=== PATIENT | female | born 1965 | race Caucasian/White ===

== ENCOUNTER 2016-11-26 18:59 | Emergency (ER) | payer SELFPAY ==
--- NOTE | 2016-11-26 19:56 | Emergency Department Record ---
History of Present Illness - General Chief Complaint: Ankle/Foot Injury Stated Complaint: PAIN IN LEFT FOOT Time Seen by Provider: 11/26/16 19:23 Source: Patient Mode of Arrival: Ambulatory Limitations: No limitations - History of Present Illness Initial Comments: pt states she injured her foot 2 months ago in a vibrating chair and it has continued to hurt. she has delayed getting it looked at because she worley no insurance. she works as a deleon and stands all day. MD Complaint: Foot injury Onset/Timin -: Days(s) Injury: Foot: Left Type of Injury: Other Place: Other Severity: Moderate Severity scale (1-10): 8 Improves With: Cold therapy, Rest Worsens With: Movement, Palpation, Weight bearing Context: Other Associated Symptoms: Ambulatory Treatments Prior to Arrival: Bandage - Related Data Home Medications Medication Instructions Recorded Confirmed Last Taken Estradiol 0.5 mg PO DAILY tab 06/20/16 11/26/16 Unknown Gabapentin [Neurontin] 100 mg PO DAILY cap 06/20/16 11/26/16 Unknown Citalopram Hydrobromide [Celexa] 20 mg PO DAILY 11/26/16 11/26/16 Unknown Previous Rx's Medication Instructions Recorded Hydrocodone/Acetaminophen [Cumming 1 each PO Q6HR #7 tablet 11/26/16 5-325 Tablet] Ibuprofen [Motrin 600Mg] 600 mg PO Q6H #20 tablet 11/26/16 Allergies Allergy/AdvReac Type Severity Reaction Status Date / Time No Known Drug Allergies Allergy Verified 11/26/16 19:05 Travel Screening - Travel/Exposure Within Last 30 Days Have you traveled within the last 30 days?: No - Travel/Exposure Within Last Year Have you traveled outside the [place] in the last year?: No - Additonal Travel Details Have you been exposed to anyone with a communicable illness?: No - Travel Symptoms Symptom Screening: None Review of Systems Reviewed: No additional complaints except as noted below Constitutional: Reports: As per HPI. Denies: Chills, Fever, Malaise, Night sweats, Weakness, Weight change Eyes: Reports: As per HPI. Denies: Eye discharge, Eye pain, Photophobia, Vision change ENT: Reports: As per HPI. Denies: Congestion, Dental pain, Ear pain, Epistaxis , Hearing loss, Throat pain Respiratory: Reports: As per HPI. Denies: Cough, Dyspnea, Hemoptysis, Stridor, Wheezes Cardiovascular: Reports: As per HPI. Denies: Arrhythmia, Chest pain, Dyspnea on exertion, Edema, Murmurs, Orthopnea, Palpitations, Paroxysmal nocturnal dyspnea, Rheumatic Fever, Syncope Endocrine: Reports: As per HPI. Denies: Fatigue, Heat or cold intolerance, Polydipsia, Polyuria Gastrointestinal: Reports: As per HPI. Denies: Abdominal pain, Constipation, Diarrhea, Hematemesis, Hematochezia, Melena, Nausea, Vomiting Genitourinary: Reports: As per HPI. Denies: Abnormal menses, Discharge, Dyspareunia, Dysuria, Frequency, Hematuria, Incontinence, Retention, Urgency Musculoskeletal: Reports: As per HPI. Denies: Arthralgia, Back pain, Gout, Joint swelling, Myalgia, Neck pain Skin: Reports: As per HPI. Denies: Bruising, Change in color, Change in hair/ nails, Lesions, Pruritus, Rash Neurological: Reports: As per HPI. Denies: Abnormal gait, Confusion, Headache, Numbness, Paresthesias, Seizure, Tingling, Tremors, Vertigo, Weakness Psychiatric: Reports: As per HPI. Denies: Anxiety, Auditory hallucinations, Depression, Homicidal thoughts, Suicidal thoughts, Visual hallucinations Hematological/Lymphatic: Reports: As per HPI. Denies: Anemia, Blood Clots, Easy bleeding, Easy bruising, Swollen glands Past Medical History - SOCIAL HISTORY Smoking Status: Current every day smoker Alcohol Use: Rare Drug Use: Rare Drug Use Detail:: Marijuana - RESPIRATORY Hx Respiratory Disorders: Yes Hx Sleep Apnea: Yes Hx of CPAP: Yes - CARDIOVASCULAR Hx Cardio Disorders: No - NEURO Hx Neuro Disorders: Yes Hx Neuropathy: Yes Comment:: fibromylgia - GI Hx GI Disorders: No - Hx Genitourinary Disorders: No - ENDOCRINE Hx Endocrine Disorders: Yes Hx Thyroid Disease: No Comment:: was on synthroid but does not take any more - MUSCULOSKELETAL Hx Musculoskeletal Disorders: No - PSYCH Hx Psych Problems: No - HEMATOLOGY/ONCOLOGY Hx Hematology/Oncology Disorders: No Family Medical History Any Significant Family History?: No Physical Exam - General General Appearance: Alert, Oriented x3, Cooperative, Mild distress - Head Head exam: Normal inspection - Eye Eye exam: Normal appearance, PERRL, EOMI Pupils: Normal accommodation - ENT ENT exam: Normal exam, Mucous membranes moist, Normal external ear exam, Normal orophraynx Ear exam: Normal external inspection. negative: External canal tenderness Nasal Exam: Normal inspection. negative: Discharge, Sinus tenderness Mouth exam: Normal external inspection, Tongue normal Teeth exam: Normal inspection. negative: Dental caries Throat exam: Normal inspection. negative: Tonsillar erythema, Tonsillar exudate - Neck Neck exam: Normal inspection, Full ROM. negative: Tenderness - Respiratory Respiratory exam: Normal lung sounds bilaterally. negative: Respiratory distress - Cardiovascular Cardiovascular Exam: Regular rate, Normal rhythm, Normal heart sounds - GI/Abdominal GI/Abdominal exam: Soft, Normal bowel sounds. negative: Tenderness - Rectal Rectal exam: Deferred - exam: Deferred - Extremities Extremities exam: Full ROM, Normal capillary refill, Tenderness Image of Feet: 1 - tender 2 - tender - Back Back exam: Reports: Normal inspection, Full ROM. Denies: Muscle spasm, Rash noted, Tenderness - Neurological Neurological exam: Alert, CN II-XII intact, Normal gait, Oriented X3 - Psychiatric Psychiatric exam: Normal affect, Normal mood - Skin Skin exam: Dry, Intact, Normal color, Warm Course Vital Signs 11/26/16 19:06 Temperature 98.1 F Pulse Rate [ 92 H Pulse Ox Probe] Respiratory 16 Rate Blood Pressure 138/104 [Left Arm] Pulse Ox 97 Disposition Disposition: Discharge Clinical Impression: Sprain of left foot Qualifiers: Encounter type: initial encounter Qualified Code(s): S93.602A - Unspecified sprain of left foot, initial encounter Disposition: Home, Self-Care Condition: (1) Good Instructions: Foot Sprain (ED) Additional Instructions: follow up with family doctor. return sooner if worse. ice and elevate. Prescriptions: Hydrocodone/Acetaminophen [Cumming 5-325 Tablet] 1 each PO Q6HR #7 tablet Ibuprofen [Motrin 600Mg] 600 mg PO Q6H #20 tablet Forms: Patient Portal Access Quality - Quality Measures Quality Measures: N/A - Blood Pressure Screening Blood Pressure Classification: Hypertensive Reading Systolic Measurement: 138 Diastolic Measurement: 104 Screening for High Blood Pressure: < First Hypertensive BP, F/U Documented > [ G8950] First Hypertensive Follow-up Interventions: Follow-up with rescreen GT 1 day and LT 4 weeks.
--- NOTE | 2016-11-28 07:44 | RADIOLOGY REPORT ---
EXAM: LEFT FOOT HISTORY: LEFT FOOT PAIN, INJURED ONE MONTH AGO. TECHNIQUE: Three views of the left foot were obtained. Comparison: None. Encounter: Initial. FINDINGS: There are plantar and dorsal calcaneal spurs. There is no fracture or acute osseous abnormality. There are mild arthritic changes in the first metatarsal phalangeal joint. IMPRESSION: 1. NO FRACTURE OR ACUTE OSSEOUS ABNORMALITY. 2. CALCANEAL SPURS. 3. MILD ARTHRITIC CHANGES FIRST METATARSAL PHALANGEAL JOINT. JOB NUMBER: [id number] [facility]
== END 2016-11-26 20:22 | disposition home or self-care (01) ==
LOC: ER 18:59
DX: S93.602A Unspecified sprain of left foot, initial encounter (principal); W31.89XA Contact with other specified machinery, initial encounter
CPT/HCPCS: 99283

== ENCOUNTER 2017-10-07 14:04 | Observation (INO) | payer SELFPAY ==
--- NOTE | 2017-10-07 14:34 | Emergency Department Record ---
History of Present Illness - General Chief Complaint: Chest Pain Stated Complaint: CHEST PAIN Time Seen by Provider: 10/07/17 14:27 Source: Patient Mode of Arrival: Ambulatory Limitations: No limitations - History of Present Illness Initial Comments: The patient is her due to chest discomfort for the last day. It is a vague L sided pain mainly under the L breast. She does have mild pain at times in her L upper back but denies any SOB, STEFANO, or nausea. The patient has felt a little sweaty today but it has been quite warm today. The pain is not worse with exertion and she has no hx of cardiac dz. The patient does have cardiac risk factors of tobacco use and family hx. MD Complaint: Chest pain Onset/Timin -: Days(s) Pain Location: Substernal, Left chest Severity scale (1-10): 4 Quality: Aching, Dull, Tightness Consistency: Constant Improves With: Nothing Worsens With: Nothing Treatments Prior to Arrival: None - Related Data Allergies Allergy/AdvReac Type Severity Reaction Status Date / Time No Known Drug Allergies Allergy Verified 10/07/17 14:17 Travel Screening - Travel/Exposure Within Last 30 Days Have you traveled within the last 30 days?: No - Travel/Exposure Within Last Year Have you traveled outside the [place] in the last year?: No - Additonal Travel Details Have you been exposed to anyone with a communicable illness?: No - Travel Symptoms Symptom Screening: None Review of Systems Constitutional: Denies: Chills, Fever Eyes: Denies: Eye discharge ENT: Denies: Congestion Respiratory: Denies: Cough, Dyspnea Past Medical History - SOCIAL HISTORY Smoking Status: Light tobacco smoker (<10/day) Alcohol Use: Rare Drug Use: Occasional Drug Use Detail:: Marijuana - RESPIRATORY Hx Respiratory Disorders: Yes Hx Sleep Apnea: Yes Hx of CPAP: Yes - CARDIOVASCULAR Hx Cardio Disorders: No - NEURO Hx Neuro Disorders: Yes Hx Neuropathy: Yes Comment:: fibromylgia - GI Hx GI Disorders: No - Hx Genitourinary Disorders: No - ENDOCRINE Hx Endocrine Disorders: Yes Hx Diabetes: No Hx Thyroid Disease: No Comment:: was on synthroid but does not take any more - MUSCULOSKELETAL Hx Musculoskeletal Disorders: No - PSYCH Hx Psych Problems: No - HEMATOLOGY/ONCOLOGY Hx Hematology/Oncology Disorders: No Family Medical History Any Significant Family History?: No Hx Diabetes: Father Hx Heart Disease: Father Hx Resp Disorders: Father Physical Exam - General General Appearance: Alert, Oriented x3, Cooperative, No acute distress - Head Head exam: Atraumatic, Normocephalic, Normal inspection - Eye Eye exam: Normal appearance, PERRL - Neck Neck exam: Normal inspection, Full ROM. negative: Tenderness - Respiratory Respiratory exam: Normal lung sounds bilaterally. negative: Respiratory distress - Cardiovascular Cardiovascular Exam: Regular rate, Normal rhythm, Normal heart sounds - GI/Abdominal GI/Abdominal exam: Soft, Normal bowel sounds. negative: Tenderness - Extremities Extremities exam: Normal inspection, Full ROM, Normal capillary refill. negative: Tenderness - Neurological Neurological exam: Alert, Normal gait. negative: Abnormal gait, Motor sensory deficit - Skin Skin exam: negative: Rash Course Vital Signs 10/07/17 14:08 Temperature 98.3 F Pulse Rate 76 Respiratory 18 Rate Blood Pressure 124/79 Pulse Ox 97 - Reevaluation(s) Reevaluation #1: The patient is doing well and is resting comfortably. I did discuss the neg workup with the patient. Due to the fact there is no clear dx and she has significant cardiac risk factors I did recommend hospital admission and she did agree. I then did discuss the case with Laurel ([employer]) and she does accept the patient for admission. 10/07/17 15:42 Medical Decision Making - Data Complexity MDM Data: Labs Ordered and/or Reviewed, X-Ray Ordered and/or Reviewed, EKG Ordered and/or Reviewed - Lab Data Result diagrams: 10/07/17 14:42 10/07/17 14:42 - EKG Data -: EKG Interpreted by Me EKG: No Acute Changes, Normal EKG - Radiology Data Radiology results: Report reviewed (CXR: Neg.) Disposition Disposition: Admit Clinical Impression: Chest pain at rest Disposition: Still a Patient at [facility] Decision to Admit: Admit from ER Decision to Admit Date: 10/07/17 Decision to Admit Time: 15:44 Accepting Physician: Eliel Time Discussed w/Accepting Physician: 15:44 Condition: (2) Stable Time of Disposition: 15:44 Quality - Quality Measures Quality Measures: N/A - Blood Pressure Screening View Details: Yes Does Patient Have Any of the Following: No Blood Pressure Classification: Pre-Hypertensive BP Reading Systolic Measurement: 124 Diastolic Measurement: 79 Screening for High Blood Pressure: < Pre-Hypertensive BP, F/U Documented > [ G8950] Pre-Hypertensive Follow-up Interventions: Referral to alternative/primary care provider.
[2017-10-07 14:47] LABS: BASO % 0.4 % (0-6); GRAN % 53.8 % (47-80); HEMATOCRIT 41.3 % (35.0-47.0); LYMPH % 34.4 % (16-45); MEAN CORPUSCULAR HEMOGLOBIN 31.2 pg (27-33); MEAN CORPUSCULAR HGB CONC 33.9 g/dl (32-36); MEAN PLATELET VOLUME 9.9 fl (7.4-10.4); MONO % 9.4 % (0-9); PLATELET COUNT 302 K/uL (130-400); RED BLOOD COUNT 4.49 M/uL (3.80-5.40); WHITE BLOOD COUNT W/O DIFF 8.4 K/uL (4.2-12.2)
[2017-10-07 14:56] LABS: BLOOD UREA NITROGEN 9 mg/dL (6-20); CREATININE 0.6 mg/dL (0.5-0.9); EST GLOMERULAR FILTRATION RATE > 60 mL/min
[2017-10-07 14:59] LABS: GLUCOSE,RANDOM 75 mg/dL (74-109)
[2017-10-07 15:02] LABS: CREATINE PHOSPHOKINASE 112 U/L (26-192)
[2017-10-07 15:03] LABS: CKMB 2.1 ng/mL (<3.77)
[2017-10-07] MEDS ORDERED: KETOROLAC 30 MG/ML VIAL IVP ONE (15:13)
[2017-10-07 15:14] LABS: THYROID STIMULATING HORMONE 1.48 uIU/mL (0.270-4.20)
[2017-10-07] MEDS ORDERED: ASPIRIN 325 MG TABLET PO ONE (15:31)
[2017-10-07] MEDS ORDERED: ACETAMINOPHEN 325 MG TAB PO PRN (16:10)
[2017-10-07] MEDS ORDERED: NITROGLYCERIN 0.4MG SL TABLET #25 BTL SL PRN (16:10)
[2017-10-07] MEDS ORDERED: TEMAZEPAM 15 MG CAPSULE PO PRN (16:10)
[2017-10-07 23:34] LABS: CKMB 1.9 ng/mL (<3.77)
[2017-10-08 07:04] LABS: BASO % 0.4 % (0-6); EOS % 3.2 % (0-6); GRAN % 48.8 % (47-80); HEMATOCRIT 40.2 % (35.0-47.0); HEMOGLOBIN 13.6 gm/dl (11.6-16.0); LYMPH % 38.9 % (16-45); MEAN CELL VOLUME 92.2 fl (81-97); MEAN CORPUSCULAR HEMOGLOBIN 31.2 pg (27-33); MEAN CORPUSCULAR HGB CONC 33.8 g/dl (32-36); MEAN PLATELET VOLUME 10.3 fl (7.4-10.4); MONO % 8.7 % (0-9); PLATELET COUNT 262 K/uL (130-400); RED BLOOD COUNT 4.36 M/uL (3.80-5.40); RED CELL DISTRIBUTION WIDTH 13.1 % (11.5-14.5); WHITE BLOOD COUNT W/O DIFF 7.9 K/uL (4.2-12.2)
[2017-10-08 07:27] LABS: ALB/GLOB RATIO 1.4 (1.1-1.8); ALBUMIN 3.5 g/dL (4.0-5.0); ALKALINE PHOSPHATASE 64 U/L (35-104); ALT/SGPT 15 U/L (<33); AST/SGOT 12 U/L (10.0-35.0); BLOOD UREA NITROGEN 9 mg/dL (6-20); CREATININE 0.6 mg/dL (0.5-0.9); EST GLOMERULAR FILTRATION RATE > 60 mL/min; GLUCOSE,RANDOM 108 mg/dL (74-109)
[2017-10-08 07:41] LABS: CKMB 1.7 ng/mL (<3.77)
--- NOTE | 2017-10-08 07:52 | RADIOLOGY REPORT ---
EXAM: CHEST, TWO VIEWS HISTORY: CHEST PAIN. TECHNIQUE: Frontal and lateral views of the chest were obtained. Comparison: 05/03/17 chest. FINDINGS: The heart size is normal. The lungs are clear. No pneumothorax. IMPRESSION: NEGATIVE CHEST EXAMINATION. JOB NUMBER: [id number] [facility]
--- NOTE | 2017-10-08 08:31 | History & Physical ---
History of Present Illness - Date of Service Date of Service for History & Physical: 10/08/17 - History of Present Illness Admitting Diagnosis: 1. Chest Pain, [place]/O [place]. History of Present Illness: Mrs. Zamudio is a 52 y/o female who presented with complaint of intermittent central chest pain with radiation to the left. She says that she and her family were driving and she noticed a tightness and uncomfortable sensation. She says the pain mike spontaneously go away but she was concerned so she decided to come to the ED. She has no previous cardiac history but has a positive family history of coronary artery disease and is smoker for more than 20 years. On initial workup in the ED the patient had a normal ECG and labs are within normal limits. The patient is admitted for telemetry monitoring and serial lab draws. On examination this morning the patient is resting comfortably and does not appear to be in any acute distress. Travel Screening - Travel/Exposure Within Last 30 Days Have you traveled within the last 30 days?: Yes Location Detail:: [employer] [place] - Travel/Exposure Within Last Year Have you traveled outside the [place] in the last year?: No - Additonal Travel Details Have you been exposed to anyone with a communicable illness?: No - Travel Symptoms Symptom Screening: None Review of Systems Constitutional: Denies: Chills, Fever Eyes: Denies: Eye discharge ENT: Denies: Congestion Respiratory: Denies: Cough, Dyspnea Past Medical History - SOCIAL HISTORY Smoking Status: Light tobacco smoker (<10/day) Alcohol Use: Rare Drug Use: Heavy Drug Use Detail:: Marijuana - RESPIRATORY Hx Respiratory Disorders: Yes Hx Sleep Apnea: Yes Hx of CPAP: Yes - CARDIOVASCULAR Hx Cardio Disorders: No - NEURO Hx Neuro Disorders: Yes Hx Neuropathy: Yes Comment:: fibromylgia - GI Hx GI Disorders: No - Hx Genitourinary Disorders: No - ENDOCRINE Hx Endocrine Disorders: Yes Hx Diabetes: No Hx Thyroid Disease: No Comment:: was on synthroid but does not take any more - MUSCULOSKELETAL Hx Musculoskeletal Disorders: Yes Hx Arthritis: Yes Hx Back Injury: Yes Hx Fibromyalgia: Yes Comment:: herniated disc in back - PSYCH Hx Psych Problems: Yes Hx Depression: Yes - HEMATOLOGY/ONCOLOGY Hx Hematology/Oncology Disorders: No Family Medical History Any Significant Family History?: Yes Hx Diabetes: Father Hx Heart Disease: Father Hx Resp Disorders: Father H&P Meds/Allergies - Allergies Allergies: Allergies Allergy/AdvReac Type Severity Reaction Status Date / Time No Known Drug Allergies Allergy Verified 10/07/17 14:17 - Active Medications Active Medications: Current Medications Acetaminophen (Tylenol 325mg) 650 mg PO Q4H PRN PRN Reason: PAIN/TEMP Last Admin: 10/07/17 22:16 Dose: 650 mg Aspirin (Ecotrin (Ec)) 325 mg PO DAILY ISAAC Citalopram Hydrobromide (Celexa) 20 mg PO DAILY ISAAC Nitroglycerin (Nitrostat 0.4mg) 0.4 mg SL Q5MIN PRN PRN Reason: CHEST PAIN Non-Formulary Medication (Estradiol [Estradiol]) 0.5 mg PO DAILY ISAAC Temazepam (Restoril) 15 mg PO QHS PRN PRN Reason: INSOMNIA Last Admin: 10/07/17 22:16 Dose: 15 mg Physical Exam - Vital Signs Vital Signs: Vital Signs - Last 24 Hrs Temp Pulse Pulse Resp BP BP Pulse Ox 10/08/17 08:23 98.8 F 87 18 123/75 98 10/08/17 06:00 73 20 106/65 95 10/08/17 00:08 60 20 117/65 96 10/07/17 20:00 97.5 F L 64 20 119/70 97 10/07/17 18:36 62 18 10/07/17 17:56 98.3 F 62 18 124/74 96 10/07/17 16:15 98.0 F 74 18 131/75 96 10/07/17 15:57 64 16 105/91 10/07/17 15:30 71 16 103/75 10/07/17 15:00 65 16 112/65 10/07/17 14:30 67 16 119/72 10/07/17 14:18 69 16 126/78 97 10/07/17 14:08 98.3 F 76 18 124/79 97 - General General Appearance: Alert, Oriented x3, Cooperative, No acute distress Limitations: No limitations - Head Head exam: Atraumatic, Normocephalic, Normal inspection - Eye Eye exam: Normal appearance, PERRL - Neck Neck exam: Normal inspection, Full ROM. negative: Tenderness - Respiratory Respiratory exam: Normal lung sounds bilaterally. negative: Respiratory distress - Cardiovascular Cardiovascular Exam: Regular rate, Normal rhythm, Normal heart sounds Peripheral Pulses: 3+: Radial (R), Radial (L), Dorsalis Pedis (R), Dorsalis Pedis (L) - GI/Abdominal GI/Abdominal exam: Soft, Normal bowel sounds. negative: Tenderness - Extremities Extremities exam: Normal inspection, Full ROM, Normal capillary refill. negative: Tenderness - Neurological Neurological exam: Alert, Normal gait. negative: Abnormal gait, Motor sensory deficit - Skin Skin exam: negative: Rash Results - Labs Result Diagrams: 10/08/17 06:50 10/08/17 06:50 Labs Last 24 Hours: Laboratory Results - last 24 hr 10/07/17 10/07/17 10/07/17 14:42 14:42 14:42 WBC 8.4 RBC 4.49 Hgb 14.0 Hct 41.3 MCV 92.0 MCH 31.2 MCHC 33.9 RDW 13.0 Plt Count 302 MPV 9.9 Gran % 53.8 Lymphocytes % 34.4 Monocytes % 9.4 H Eosinophils % 2.0 Basophils % 0.4 PT 11.0 INR 1.0 APTT 28.0 D-Dimer 0.32 Sodium 144 Potassium 4.1 Chloride 102 Carbon Dioxide 27.0 Anion Gap 15.0 BUN 9 Creatinine 0.6 Estimated GFR > 60 Random Glucose 75 Calcium 9.0 Total Bilirubin AST ALT Alkaline Phosphatase Creatine Kinase 112 CK-MB (CK-2) 2.1 Troponin T < 0.010 Total Protein Albumin Globulin Albumin/Globulin Ratio TSH 1.48 10/07/17 10/08/17 10/08/17 23:10 06:50 06:50 WBC 7.9 RBC 4.36 Hgb 13.6 Hct 40.2 MCV 92.2 MCH 31.2 MCHC 33.8 RDW 13.1 Plt Count 262 MPV 10.3 Gran % 48.8 Lymphocytes % 38.9 Monocytes % 8.7 Eosinophils % 3.2 Basophils % 0.4 PT INR APTT D-Dimer Sodium Potassium Chloride Carbon Dioxide Anion Gap BUN Creatinine Estimated GFR Random Glucose Calcium Total Bilirubin AST ALT Alkaline Phosphatase Creatine Kinase CK-MB (CK-2) 1.9 1.7 Troponin T < 0.010 < 0.010 Total Protein Albumin Globulin Albumin/Globulin Ratio [facility] 10/08/17 06:50 WBC RBC Hgb Hct MCV MCH MCHC RDW Plt Count MPV Gran % Lymphocytes % Monocytes % Eosinophils % Basophils % PT INR APTT D-Dimer Sodium 142 Potassium 4.5 Chloride 102 Carbon Dioxide 26.0 Anion Gap 14.0 BUN 9 Creatinine 0.6 Estimated GFR > 60 Random Glucose 108 Calcium 8.6 Total Bilirubin 0.20 AST 12 ALT 15 Alkaline Phosphatase 64 Creatine Kinase CK-MB (CK-2) Troponin T Total Protein 6.0 L Albumin 3.5 L Globulin 2.5 Albumin/Globulin Ratio 1.4 TSH VTE H&P Assessment - Risk for VTE Risk for VTE: No Risk Level: Very Low Risk Assessment Date: 10/08/17 Risk Assessment Time: 10:21 VTE Orders Placed or Will Be Placed: No VTE Reason for No Prophylaxis: Not Indicated Plan - Detailed Diagnosis and Plan (1) Chest pain at rest Current Visit: Yes Status: Acute Base Code: R07.9 - CHEST PAIN, UNSPECIFIED Comment: 10/08/2017: - ECG - NSR, VR 68, no acute ST-T wave cahnges. - Troponins negative x 2 - telemetry - no acute arrythmias noted. - cotinue full dose aspirin, Nitrostat 0.4mg PRN Q5mins (2) Fibromyalgia Current Visit: Yes Status: Acute Base Code: M79.7 - FIBROMYALGIA Comment: 10/08/17: - resume Celexa daily. (3) Tobacco dependence due to cigarettes Current Visit: Yes Status: Acute Base Code: F17.210 - NICOTINE DEPENDENCE, CIGARETTES, UNCOMPLICATED Comment: 10/08/17: - 20 pk/year smoking hx. - smoking cessation counseling. - Nicotine patch to be ordered. (4) DVT prophylaxis Current Visit: Yes Status: Acute Base Code: [id number] - Comment: 10/08/17: - pt ambulatory, low risk of DVT (5) Full code status Current Visit: Yes Status: Acute Base Code: Z78.9 - OTHER SPECIFIED HEALTH STATUS Comment: 10/08/17: FULL CODE
[2017-10-08] MEDS ORDERED: ESTRADIOL 0.5 MG PO SCH (10:00)
[2017-10-08] MEDS ORDERED: ASPIRIN 325 MG TAB ENTERIC-COATED PO SCH (10:00)
[2017-10-08] MEDS ORDERED: CITALOPRAM 20 MG TABLET PO SCH (10:00)
--- NOTE | 2017-10-08 10:35 | Discharge Summary ---
Providers Discharge Summary Date: 10/08/17 Date of admission: 10/07/17 15:57 Attending physician: MARLENY LÓPEZ Physical Exam - Vital Signs Vital Signs: Vital Signs - Last 24 Hrs Temp Pulse Pulse Resp BP BP Pulse Ox 10/08/17 09:00 18 10/08/17 08:23 98.8 F 87 18 123/75 98 10/08/17 06:00 73 20 106/65 95 10/08/17 00:08 60 20 117/65 96 10/07/17 20:00 97.5 F L 64 20 119/70 97 10/07/17 18:36 62 18 10/07/17 17:56 98.3 F 62 18 124/74 96 10/07/17 16:15 98.0 F 74 18 131/75 96 10/07/17 15:57 64 16 105/91 10/07/17 15:30 71 16 103/75 10/07/17 15:00 65 16 112/65 10/07/17 14:30 67 16 119/72 10/07/17 14:18 69 16 126/78 97 10/07/17 14:08 98.3 F 76 18 124/79 97 - General General Appearance: Alert, Oriented x3, Cooperative, No acute distress Limitations: No limitations - Head Head exam: Atraumatic, Normocephalic, Normal inspection - Eye Eye exam: Normal appearance, PERRL - Neck Neck exam: Normal inspection, Full ROM. negative: Tenderness - Respiratory Respiratory exam: Normal lung sounds bilaterally. negative: Respiratory distress - Cardiovascular Cardiovascular Exam: Regular rate, Normal rhythm, Normal heart sounds Peripheral Pulses: 3+: Radial (R), Radial (L), Dorsalis Pedis (R), Dorsalis Pedis (L) - GI/Abdominal GI/Abdominal exam: Soft, Normal bowel sounds. negative: Tenderness - Extremities Extremities exam: Normal inspection, Full ROM, Normal capillary refill. negative: Tenderness - Neurological Neurological exam: Alert, Normal gait. negative: Abnormal gait, Motor sensory deficit - Skin Skin exam: negative: Rash Hospitalization - Hospitalization Admission Diagnosis: 1. Chest Pain, R/O ME. - Problem List/Discharge Diagnosis (1) Chest pain at rest Current Visit: Yes Status: Acute Base Code: R07.9 - CHEST PAIN, UNSPECIFIED Comment: 10/08/2017: - ECG - NSR, VR 68, no acute ST-T wave cahnges. - Troponins negative x 2 - telemetry - no acute arrythmias noted. - cotinue full dose aspirin, Nitrostat 0.4mg PRN Q5mins (2) Fibromyalgia Current Visit: Yes Status: Acute Base Code: M79.7 - FIBROMYALGIA Comment: 10/08/17: - resume Celexa daily. (3) Tobacco dependence due to cigarettes Current Visit: Yes Status: Acute Base Code: F17.210 - NICOTINE DEPENDENCE, CIGARETTES, UNCOMPLICATED Comment: 10/08/17: - 20 pk/year smoking hx. - smoking cessation counseling. - Nicotine patch to be ordered. (4) DVT prophylaxis Current Visit: Yes Status: Acute Base Code: [id number] - Comment: 10/08/17: - pt ambulatory, low risk of DVT (5) Full code status Current Visit: Yes Status: Acute Base Code: Z78.9 - OTHER SPECIFIED HEALTH STATUS Comment: 10/08/17: FULL CODE - Hospitalization Course Hospital Course: Mrs. Zamudio is a 52 y/o female who presented with complaint of intermittent central chest pain with radiation to the left. She says that she and her family were driving and she noticed a tightness and uncomfortable sensation. She says the pain imke spontaneously go away but she was concerned so she decided to come to the ED. She has no previous cardiac history but has a positive family history of coronary artery disease and is smoker for more than 20 years. On initial workup in the ED the patient had a normal ECG and labs are within normal limits. The patient is admitted for telemetry monitoring and serial lab draws. On examination this morning the patient is resting comfortably and does not appear to be in any acute distress. I had a discussion with the patient to explain the ECG findings and her labs. She will follow up in the Family Practice for any further outpatient workup required. Procedures: Imaging and X-Rays 10/07/17 14:33 CHEST 2 VIEWS [RAD] Stat Cardiology Procedures 10/07/17 14:18 EKG NOW 10/07/17 16:10 Manager Asset .Continuous EKG QDX2@0600 Abnormal Labs: Abnormal Lab Results 10/07/17 10/08/17 Range/Units 14:42 06:50 Monocytes % 9.4 H (0-9) % Total Protein 6.0 L (6.6-8.7) g/dL Albumin 3.5 L (4.0-5.0) g/dL Condition at Discharge: (1) Good Discharge Diagnosis: Atypical chest pain Discharge Plan - Discharge Instructions Activity at Discharge: Resume Usual Activities As Tolerated Diet at Discharge: Regular Diet Additional Instructions: As discussed there were no findings of acute coronary syndrome. Please follow up with your PCP (Penelope Watson NP) within 2-5 days. You are advised to stop smoking and to start a low fat, low sodium diet. Quality Measures - Quality Measures Quality Measures: Documentation of Current Medications in Medical Record, Screening for High Blood Pressure and F/U Documented - Current Medications Quality Measure: Measure #130: Documentation of Current Medications Documentation of Current Medications: <Current Medications Documented/Reviewed> [G8427] - Blood Pressure Screening Quality Measure: Screening for High Blood Pressure and Follow-Up Documented Does Patient Have Any of the Following: No Blood Pressure Classification: Hypertensive Reading Systolic Measurement: 105 Diastolic Measurement: 91 Screening for High Blood Pressure: < Normal BP, F/U Not Required > [G8783] - Elder Abuse Suspicion Index EASI Reference Information: Lola DSOUZA, Adalberto C, Fred D, Philip Vinson.Development and validation of a tool to assist physicians identification of elder abuse: The Elder Abuse Suspicion Index (EASI ). Journal of Elder Abuse and Neglect, 2008; 20 (3): 276-300.
== END 2017-10-08 11:25 | disposition home or self-care (01) ==
LOC: ER 14:04 → MEDSURG 15:57
PROVIDERS: ADMIT Internal Medicine; ATTEND Internal Medicine
DX: R07.9 Chest pain, unspecified (principal); G47.30 Sleep apnea, unspecified; G62.9 Polyneuropathy, unspecified; M79.7 Fibromyalgia; M19.90 Unspecified osteoarthritis, unspecified site; F17.210 Nicotine dependence, cigarettes, uncomplicated; F12.90 Cannabis use, unspecified, uncomplicated
CPT/HCPCS: 71046; 80048; 80053; 82550; 82553; 84443; 84484; 85025; 85379; 85610; 85730; 93005; 93010; 96374; 99220; 99285; J1885

== ENCOUNTER 2018-08-04 10:01 | Day surgery (SDC) | payer BC ==
[2018-08-04] MEDS ORDERED: ONDANSETRON HCL IV 4 MG/2 ML VIAL IVP ONE (10:02)
[2018-08-04] MEDS ORDERED: PROPOFOL 10 MG/ML VIAL IV ONE (10:02)
[2018-08-04] MEDS ORDERED: LIDOCAINE 2% MDV (20MG/ML) 20ML VIAL IV ONE (10:02)
--- NOTE | 2018-08-04 16:00 | Operative Note ---
DATE OF SURGERY: 08/04/2018 OPERATION: COLONOSCOPY to the cecum with cold biopsy forceps polypectomy x2. INDICATION: Probable history of polyps. The patient relates that she had a colonoscopy completed a little more than 3 years ago in [place] by a Dr. Booth who advised her to have a recheck colonoscopy in 3 years' time. She does not recall whether she had polyps or not but she presents today for colonoscopy. ANESTHESIA: Intravenous sedation was administered by the department of anesthesiology and included Diprivan titrated to effect. PROCEDURE: Following informed consent from this alert individual including a discussion of the risks and benefits of the procedure and an opportunity for the patient to ask questions, the patient was in the left lateral decubitus position. A digital rectal examination was performed. No abnormalities were noted. Following this, the Olympus [id number] video colonoscope was inserted into the rectum without resistance. The rectal mucosa had a normal appearance with normal folds and distensibility. The colonoscope was advanced up through the bowel to the level of the cecum without much difficulty. Throughout the bowel the mucosa appeared normal, the folds were normal, and the bowel was fairly well distensible. The colon preparation was good. The cecum was defined by noting the appendiceal orifice and ileocecal valve. Retroflexion in the cecum failed to demonstrate any changes. From this point, the colonoscope was then withdrawn. There was a diminutive polyp noted in the sigmoid colon measuring 3-4 mm in size removed with cold biopsy forceps. There was a second polyp noted in the rectum also measuring 3-4 mm in size likewise removed with cold biopsy forceps. No other changes were noted throughout. The patient tolerated the procedure well and was returned to the recovery area in stable condition. Retroflexion in the rectum was endoscopically unremarkable as well. IMPRESSION: 1. A 3-4 mm polyp noted in the sigmoid colon removed with biopsy forceps. 2. A 3-4 mm rectal polyp removed with biopsy forceps. RECOMMENDATIONS: Further recommendations will be forthcoming pending results of pathology obtained today. The patient will be following up with Penelope Watson. She was advised to see if she can get the medical records from her previous colonoscopy but I suspect she will have a recheck examination in 5 years' time pending pathology. As always, thank you for allowing me to participate in the care of your patient. CC: GUCCI Bojorquez
== END 2018-08-04 12:20 | disposition home or self-care (01) ==
LOC: HOP 10:01
PROVIDERS: ATTEND Internal Medicine Gastroenterology
DX: Z12.11 Encounter for screening for malignant neoplasm of colon (principal); D12.5 Benign neoplasm of sigmoid colon; K62.1 Rectal polyp
CPT/HCPCS: J2405